=== PATIENT | male | born 1980 | race Caucasian/White ===

== ENCOUNTER 2020-09-10 03:37 | Inpatient (IN) | payer BC ==
[~2020-09-10] VITALS: Ht 165.1 cm; Wt 170.3 kg
[2020-09-10] VITALS (7 sets, daily range): BP systolic 110–132; BP diastolic 54–79
[~2020-09-10 03:37] MED LIST: ALLERGY PILL PO; COLACE100 MG PO; DOXYCYCLINE 10100 MG PO; HYDROCODONE-AP1 EAC6 PO; IBUPROFEN 600600 M1 PO; MIRALAX17 GM PO; NORCO 5-325 TA1 EAC1 PO; ONDANSETRON HCL4 M2 PO; ROCEPHIN 11 GM/1001 IV; TYLENOL325 MG PO; ZOFRAN ODT4 MG PO
[2020-09-10 04:06] LABS: ABSOLUTE LYMPHOCYTES 0.6 thou/uL (0.8-5.3); ABSOLUTE MONOCYTES 0.2 thou/uL (0.0-1.2); ABSOLUTE NEUTROPHILS 2.3 thou/uL (1.6-8.1); BASOPHILS 0.7 %; EOSINOPHILS 0.1 %; HEMATOCRIT 37.8 % (42.0-52.0); HEMOGLOBIN 12.8 gm/dL (14.0-18.0); LYMPHOCYTES 19.7 %; MCH 30.5 pg (26.0-34.0); MCHC 33.9 g/dL (28.0-37.0); MCV 89.8 fL (80.0-100.0); MONOCYTES 5.7 %; MPV 7.8 fl. (7.2-11.1); NUCLEATED RBCS 0 /100WBC; PLATELET COUNT* 241 thou/uL (150-400); POLYS 73.8 %; RBC 4.21 mil/uL (4.50-6.00); RDW-CV 14.6 % (10.5-14.5); WBC 3.2 thou/uL (4.0-11.0)
[2020-09-10 04:16] LABS: CALCIUM 8.3 mg/dL (8.5-10.1); CREATININE 1.3 mg/dL (0.6-1.3); POTASSIUM 4.1 mmol/L (3.5-5.1)
[2020-09-10 04:26] LABS: ALBUMIN 3.1 g/dL (3.4-5.0); MAGNESIUM 1.8 mg/dL (1.8-2.4); TOTAL BILIRUBIN 0.4 mg/dL (<0.1-1.0); TOTAL PROTEIN 7.7 g/dL (6.4-8.2)
[2020-09-10 08:03] LABS: URINE BILIRUBIN NEGATIVE (Negative); URINE BLOOD NEGATIVE (Negative); URINE CLARITY CLEAR; URINE COLOR YELLOW; URINE GLUCOSE-RANDOM NEGATIVE (Negative); URINE KETONES 1+ (Negative); URINE LEUKOCYTES-REFLEX NEGATIVE (Negative); URINE NITRITE-REFLEX NEGATIVE (Negative); URINE PROTEIN NEGATIVE (Negative); URINE SPECIFIC GRAVITY <= 1.005 (1.005-1.030); URINE UROBILINOGEN 0.2 E.U./dl (0.2-1.0)
--- NOTE | 2020-09-10 10:19 | EKG ---
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 09/10/20 1018 0340 0340 Eliel Rabago MD, [facility] /EPI
--- NOTE | 2020-09-10 16:35 | NUR ---
Patient admitted for hypoxia, morbid obesity and COVID PNA. Left vm for mother (Patricia) to introduced role of CM. Patient admitted from home. Has a CPAP but does not use it. No PCP. Patient was independent with ADLS. No other hx able to be obtained at this time. Patient to start remdesevir and pulm following. Patient to stay through the weekend.
[2020-09-11] MEDS ORDERED: CALICUM 500+D1 EACH PO (00:21)
[2020-09-11] MEDS ORDERED: SUPER THERAVIT1 EACH PO (00:21)
[2020-09-11 02:09] VITALS: BP 108/63; BP 118/60
--- NOTE | 2020-09-11 04:56 | NUR ---
REPORT RECIEVED FROM ED. PT ORIENTED TO ROOM, CALL LIGHT SHOWN, FALL AGREEMENT WENT OVER, PT STATED UNDERSTANDING. IV PATENT. NO REPORTS OF PAIN. PT ON 4L NC WHILE AWAKE, BIPAP WHILE ASLEEP, PT TOLERATED WELL. CONVALESCENT PLASMA GIVEN ORDRED WITH NO NOTED REACTIONS. PT ABLE TO MAKE NEEDS KNOWN. WILL CONTINUE WITH PLAN OF CARE.
[2020-09-11 06:31] LABS: ABSOLUTE LYMPHOCYTES 0.5 thou/uL (0.8-5.3); ABSOLUTE MONOCYTES 0.3 thou/uL (0.0-1.2); ABSOLUTE NEUTROPHILS 4.9 thou/uL (1.6-8.1); BASOPHILS 0.2 %; HEMATOCRIT 39.1 % (42.0-52.0); LYMPHOCYTES 9.5 %; MCH 29.8 pg (26.0-34.0); MCHC 33.3 g/dL (28.0-37.0); MCV 89.5 fL (80.0-100.0); MPV 7.6 fl. (7.2-11.1); NUCLEATED RBCS 0 /100WBC; PLATELET COUNT* 242 thou/uL (150-400); POLYS 85.3 %; RBC 4.37 mil/uL (4.50-6.00); RDW-CV 14.6 % (10.5-14.5); WBC 5.7 thou/uL (4.0-11.0)
[2020-09-11 06:51] LABS: ALBUMIN 3.1 g/dL (3.4-5.0); CALCIUM 8.7 mg/dL (8.5-10.1); CREATININE 1.1 mg/dL (0.6-1.3); MAGNESIUM 2.2 mg/dL (1.8-2.4); POTASSIUM 4.7 mmol/L (3.5-5.1); TOTAL BILIRUBIN 0.4 mg/dL (<0.1-1.0)
[2020-09-11 08:00] VITALS: BP 115/55
[2020-09-11 16:56] VITALS: BP 106/68
--- NOTE | 2020-09-11 17:43 | NUR ---
PATIENT RESTING UP IN CHAIR. PATIENT IS UP AD DAVID. PATIENT IS SHORT OF AIR WITH EXERTION. OXYGEN ON AT 4L/NC WITH O2 SATS STEADY IN LOW 90'S. PATIENT DENIES ANY PAIN. PATIENT DENIES ANY NEEDS AT THIS TIME. CALLL LIGHT WITHIN REACH.
[2020-09-11 20:00] VITALS: BP 105/53
[2020-09-12] VITALS (7 sets, daily range): BP systolic 93–126; BP diastolic 40–65
[2020-09-12 06:18] LABS: ABSOLUTE LYMPHOCYTES 0.9 thou/uL (0.8-5.3); ABSOLUTE MONOCYTES 0.3 thou/uL (0.0-1.2); ABSOLUTE NEUTROPHILS 3.1 thou/uL (1.6-8.1); BASOPHILS 0.1 %; HEMATOCRIT 36.2 % (42.0-52.0); HEMOGLOBIN 12.5 gm/dL (14.0-18.0); MCH 30.5 pg (26.0-34.0); MCHC 34.5 g/dL (28.0-37.0); MCV 88.3 fL (80.0-100.0); MONOCYTES 7.8 %; MPV 7.5 fl. (7.2-11.1); NUCLEATED RBCS 0 /100WBC; PLATELET COUNT* 270 thou/uL (150-400); POLYS 71.1 %; RDW-CV 14.7 % (10.5-14.5); WBC 4.4 thou/uL (4.0-11.0)
[2020-09-12 06:39] LABS: CALCIUM 8.8 mg/dL (8.5-10.1); CREATININE 1.1 mg/dL (0.6-1.3); POTASSIUM 3.9 mmol/L (3.5-5.1); TOTAL PROTEIN 7.5 g/dL (6.4-8.2)
[2020-09-12 07:03] LABS: TOTAL BILIRUBIN 0.3 mg/dL (<0.1-1.0)
--- NOTE | 2020-09-12 17:32 | NUR ---
PATIENT RESTING UP IN CHAIR. PATIENT IS ON 4L/NC. PATIENT HAS BEEN USING I.S. PATIENT DENIES ANY PAIN. PATIENT HAD 1 UNIT PLASMA THIS AFTERNOON WITHOUT INCIDENT. PATIENT DENIES ANY NEEDS AT THIS TIME. CALL LIGHT WITHIN REACH.
[2020-09-13 00:30] VITALS: BP 107/44
--- NOTE | 2020-09-13 04:32 | NUR ---
ASSUMED CARE AT 1900H, ON NC AT 4LPM AND TOLERATED. SEEN ON PRONE POSITION. NO FEVER AND NO DISTRESS NOTED. DEEP BREATHING EXERCISE ENCOURAGE. CONTINUE MONITORING TOWARDS GOALS.
[2020-09-13 04:41] VITALS: BP 109/89
[2020-09-13 05:10] LABS: ABSOLUTE LYMPHOCYTES 1.1 thou/uL (0.8-5.3); ABSOLUTE MONOCYTES 0.3 thou/uL (0.0-1.2); ABSOLUTE NEUTROPHILS 2.7 thou/uL (1.6-8.1); BASOPHILS 0.1 %; HEMATOCRIT 35.4 % (42.0-52.0); LYMPHOCYTES 26.7 %; MCH 30.3 pg (26.0-34.0); MCV 89.2 fL (80.0-100.0); MONOCYTES 8.2 %; MPV 7.3 fl. (7.2-11.1); NUCLEATED RBCS 0 /100WBC; PLATELET COUNT* 278 thou/uL (150-400); RBC 3.96 mil/uL (4.50-6.00); RDW-CV 14.4 % (10.5-14.5); WBC 4.2 thou/uL (4.0-11.0)
[2020-09-13 05:31] LABS: ALBUMIN 2.9 g/dL (3.4-5.0); CALCIUM 8.9 mg/dL (8.5-10.1); CREATININE 1.2 mg/dL (0.6-1.3); MAGNESIUM 2.3 mg/dL (1.8-2.4); POTASSIUM 4.1 mmol/L (3.5-5.1); TOTAL BILIRUBIN 0.3 mg/dL (<0.1-1.0); TOTAL PROTEIN 7.4 g/dL (6.4-8.2)
[2020-09-13 08:30] VITALS: BP 130/61
[2020-09-13 12:27] VITALS: BP 104/56
--- NOTE | 2020-09-13 13:59 | NUR ---
Covid positive. Anticipate dc in 1-2 days. Doing well. On 4L o2. Plan to complete Remdisivir prior to dc. Pt will need an ex ox prior to dc to determine if he needs home o2 at discharge.
[2020-09-13 15:52] VITALS: BP 123/71
--- NOTE | 2020-09-13 18:32 | NUR ---
PATIENT HAS REMAINED A&OX4, PLEASANT AND COOPERATIVE WITH CARES THIS SHIFT. MEDICATIONS ADMINISTERED ORDERED. PATIENT HAS DENIED PAIN, NO RESPIRATORY DISTRESS NOTED. PATIENT UP AD DAVID IN ROOM. CALL LIGHT WITHIN REACH.
[2020-09-13 20:00] VITALS: BP 115/75
[2020-09-14] VITALS: BP 99/46
[2020-09-14 04:00] VITALS: BP 107/57
--- NOTE | 2020-09-14 05:36 | NUR ---
PT SLEPT PRONE THIS SHIFT. ASSESSMENT DOCUMENTED. MEDS GIVEN PER E-MAR. IV PATENT. NO REPORTS OF PAIN. PT ON 2L NC WHILE AWAKE, BIPAP WHILE SLEEPING. PT ABLE TO MAKE NEEDS KNOWN. WILL CONTINUE WITH PLAN OF CARE.
[2020-09-14 06:22] LABS: ALBUMIN 2.9 g/dL (3.4-5.0); CALCIUM 8.7 mg/dL (8.5-10.1); MAGNESIUM 2.3 mg/dL (1.8-2.4); POTASSIUM 4.1 mmol/L (3.5-5.1); TOTAL BILIRUBIN 0.4 mg/dL (<0.1-1.0)
[2020-09-14 08:23] VITALS: BP 91/38
--- NOTE | 2020-09-14 11:38 | NUR ---
Nutrition: Pt admitted to COVID unit. Assessed for high BMI. Wt: 375#. CHO controlled diet. BG 100, albumin 2.9. On bipap at NOC. 4L O2. Remdesivir. Pt's usual BMI is >40. Will not educate on wt loss at this time d/t COVID restrictions. Consider mild to low risk.
[2020-09-14 12:00] VITALS: BP 102/45
--- NOTE | 2020-09-14 14:21 | NUR ---
Anticipate dc tomorrow. Covid positive. On 2L, will need ex ox at dc if still requiring o2. Pt doing better
[2020-09-14 16:00] VITALS: BP 106/48
--- NOTE | 2020-09-14 18:41 | NUR ---
PATIENT HAS REMAINED A&OX4, PLEASANT AND COOPERATIVE WITH CARES THIS SHIFT. PATIENT CURRENTLY ON ROOM AIR AND IS SATTING AT 93-94%. MEDICATIONS ADMINISTERED ORDERED. PATIENT HAS DENIED PAIN/N/V. IS UP AD DAVID IN ROOM. CALL LIGHT WITHIN REACH.
[2020-09-14 19:30] VITALS: BP 103/61
[2020-09-15 00:44] VITALS: BP 118/63
[2020-09-15 03:58] VITALS: BP 108/57
--- NOTE | 2020-09-15 04:56 | NUR ---
PT SLEPT MOST OF SHIFT. ASSESSMENT DOCUMENTED. MEDS GIVEN PER E-MAR. IV PATENT. NO REPORTS OF PAIN. PT SLEPT WITH BIPAP IN PRONE POSITION. PT ABLE TO MAKE NEEDS KNOWN. WILL CONTINUE WITH PLAN OF CARE.
[2020-09-15 07:48] VITALS: BP 104/63
[2020-09-15] MEDS ORDERED: CEFDINIR300 MG PO (10:06)
[2020-09-15] MEDS ORDERED: BROVANA15 MCG/2 M INH (10:06)
[2020-09-15] MEDS ORDERED: DEXAMETHASONE 22 MG PO (10:06)
[2020-09-15] MEDS ORDERED: NEBULIZER MISCELL (10:06)
[2020-09-15] MEDS ORDERED: ALBUTEROL2.5 MG/0.5 INH (10:06)
--- NOTE | 2020-09-15 14:12 | NUR ---
Pt discharging to home today with a nebulizer. Neb ordered faxed to [facility], they will deliver to Pt's home tomorrow per Pt's request. No further needs.
[2020-09-15 15:44] VITALS: BP 104/63
--- NOTE | 2020-09-15 16:26 | NUR ---
PT DISCHARGED AT 1625, IV REMOVED, LEFT WITH DISCHARGE INSTRUCTIONS AND ALL OF HIS BELONGINGS. PT A/OX4 PLEASANT AND COOPERATIVE, AMBULATING AND INDEPENDENT ON ROOM AIR.
--- NOTE | 2020-09-16 23:23 | CON ---
[address] [address] CONSULTATION Name: CURTSTEFANIE Room: [address] IN .R.#: [id number] Admission: 09/10/20 Attend Phys: Saul Hare Discharge: 09/15/20 Date of : 80 Report #: [id number] THIS REPORT FOR: cc: SEFERINO - Stephanie family physician/PCP SEFERINO - No family physician/PCP Wilder Evangelista MD ~ DATE OF CONSULTATION: 09/10/2020 REQUESTING PHYSICIAN: Dr. Bello Fagan. INDICATION FOR CONSULTATION: Acute hypoxemic respiratory failure secondary to COVID-19. HISTORY OF PRESENT ILLNESS: This is a 39 years old gentleman with past medical history as mentioned below. He does have a history of morbid obesity, body mass index is 62. He does have a history of obstructive sleep apnea. There is a conflicting information regarding whether the patient is using his CPAP at home regularly. The patient is now admitted with increasing shortness of breath and loss of taste over the last few days. He does have some cough, but there is not much sputum. There is no chest pain. There is no increase in swelling of lower extremities or calf pain. He does report that he has had fevers. The patient is currently requiring around 4 liters of oxygen via nasal cannula to maintain O2 saturation in the low 90s. He is hypoxemic on room air. REVIEW OF SYSTEMS: For 12 points is negative, except as mentioned above. PAST MEDICAL HISTORY: Morbid obesity, body mass index 62, obstructive sleep apnea, on CPAP at home, gastric bypass, shoulder surgery, allergic rhinitis. SOCIAL HISTORY: No known history of smoking, only occasional alcohol use. No known history of illegal drug use. [facility] HOME MEDICATIONS: List in [facility] reviewed. ALLERGIES: No known drug allergies. FAMILY HISTORY: No pertinent family history. PHYSICAL EXAMINATION: GENERAL: Alert, awake and oriented. VITAL SIGNS: In the records reviewed. HEENT: Head is normocephalic and atraumatic. NECK: [place] [address] CONSULTATION Name: STEFANIE ELIAS Room: [address]#: [id number] Admission: 09/10/20 Attend Phys: Saul Hare Discharge: 09/15/20 Date of : 80 Report #: [id number] CHEST: Breath sounds are bilaterally equal, decreased. No added sounds. HEART: Regular, no murmur. ABDOMEN: Soft and nontender. LOWER EXTREMITIES: Minimal edema, no calf tenderness. SKIN: Dry and intact. NEUROLOGIC: Moves all extremities bilaterally equally and spontaneously with no focal deficit identified. The patient's chest x-ray shows extensive infiltrates. I am concerned that he may be developing early ARDS secondary to COVID-19. CT chest also reviewed and has no additional findings. No pulmonary emboli. LABORATORY WORK: In [facility] reviewed. ASSESSMENT AND PLAN: 1. Acute hypoxemic respiratory failure, secondary to COVID-19. I feel that it is important that he does use a BiPAP while asleep at this time, considering that he has obstructive sleep apnea. He was in the prone position when I examined him and I would encourage him to continue to remain prone, as well as to be out of bed to chair as tolerated. Therefore, he does need to be in a negative pressure room. 2. COVID-19. For now, we will keep the dexamethasone at 6 mg daily. Agree with remdesivir. We will continue to watch LFTs. I recommend giving him Actemra as well; however, we do not have Actemra available until, I am told by the pharmacy, mid of next week. I discussed the risks and benefits of convalescent plasma with the patient. He agreed to proceed with the same. I went ahead and ordered 1 unit. 3. Pulmonary infiltrates. we will also cover him with ceftriaxone. We will do a nasal swab for methicillin-resistant Staphylococcus aureus as well as sputum cultures. 4. Mild fluid overload/mild elevation in creatinine. We will repeat creatinine tomorrow morning. Some increase in creatinine may also be secondary to increase in muscle mass. If his creatinine is stable, I will be inclined to give him Lasix tomorrow. 5. Obstructive sleep apnea, see discussion above. 6. Deep venous thrombosis prophylaxis, intermediate dose Lovenox. 7. Gastrointestinal prophylaxis, Protonix. 8. Clostridium difficile prophylaxis, Lactinex. Thanks for this consultation. <ELECTRONICALLY SIGNED> By: Wilder Evangelista MD 09/16/20 2323 2103 [id number] Evangelista MD /nt
== END 2020-09-15 16:25 | disposition home or self-care (01) | DRG 871 ==
LOC: M.ERS 03:37 → M.TBA-ER 06:20 → M.ORTHSURG 06:20
PROVIDERS: Emergency Medicine; Internal Medicine; Internal Medicine Critical Care Medicine; ADMIT Internal Medicine; ATTEND Internal Medicine
PROC: 5A09357 Assistance with Respiratory Ventilation, Less than 24 Consecutive Hours, Continuous Positive Airway Pressure (ICD-10-PCS; principal; 2020-09-11)
PROC: 5A0935A Assistance with Respiratory Ventilation, Less than 24 Consecutive Hours, High Flow/Velocity Cannula (ICD-10-PCS; principal; 2020-09-11)
PROC: XW033E5 Introduction of Remdesivir Anti-infective into Peripheral Vein, Percutaneous Approach, New Technology Group 5 (ICD-10-PCS; principal; 2020-09-11)
PROC: XW13325 Transfusion of Convalescent Plasma (Nonautologous) into Peripheral Vein, Percutaneous Approach, New Technology Group 5 (ICD-10-PCS; principal; 2020-09-11)
PROC: 5A09357 Assistance with Respiratory Ventilation, Less than 24 Consecutive Hours, Continuous Positive Airway Pressure (ICD-10-PCS; 2020-09-12)
PROC: 5A09357 Assistance with Respiratory Ventilation, Less than 24 Consecutive Hours, Continuous Positive Airway Pressure (ICD-10-PCS; 2020-09-13)
PROC: 5A0935A Assistance with Respiratory Ventilation, Less than 24 Consecutive Hours, High Flow/Velocity Cannula (ICD-10-PCS; 2020-09-13)
PROC: 5A09357 Assistance with Respiratory Ventilation, Less than 24 Consecutive Hours, Continuous Positive Airway Pressure (ICD-10-PCS; 2020-09-14)
DX: A41.89 Other specified sepsis (principal); U07.1 COVID-19; J96.01 Acute respiratory failure with hypoxia; J12.82 Pneumonia due to coronavirus disease 2019; Z68.44 Body mass index [BMI] 60.0-69.9, adult; E66.2 Morbid (severe) obesity with alveolar hypoventilation; Z98.84 Bariatric surgery status; Z79.899 Other long term (current) drug therapy; Z72.89 Other problems related to lifestyle